=== PATIENT | male | born 1950 | race Caucasian/White ===

== ENCOUNTER 2021-01-19 20:00 | Inpatient (IN) | payer MEDICARE, OTHER ==
[~2021-01-19] VITALS: Ht 175.3 cm; Wt 93.0 kg
[2021-01-19 20:18] LABS: HEMOGLOBIN 14.9 gm/dl (14.0-17.5); RED BLOOD COUNT 5.03 M/UL (4.20-5.50); WHITE BLOOD COUNT 15.6 K/UL (4.5-11.0)
[2021-01-19 20:54] LABS: BUN/CREATININE RATIO 23 (0-10)
[2021-01-19] MEDS ORDERED: PRILOSEC OTC20 MG PO (23:04)
[2021-01-20 01:38] LABS: BUN/CREATININE RATIO 25 (0-10)
[2021-01-20 05:04] LABS: HEMOGLOBIN 14.6 gm/dl (14.0-17.5); RED BLOOD COUNT 4.93 M/UL (4.20-5.50); WHITE BLOOD COUNT 12.8 K/UL (4.5-11.0)
[2021-01-20 05:18] LABS: BUN/CREATININE RATIO 24 (0-10)
[2021-01-22 03:47] LABS: HEMOGLOBIN 13.6 gm/dl (14.0-17.5); RED BLOOD COUNT 4.65 M/UL (4.20-5.50)
[2021-01-22 03:48] LABS: WHITE BLOOD COUNT 8.6 K/UL (4.5-11.0)
[2021-01-22 04:04] LABS: BUN/CREATININE RATIO 23 (0-10)
[2021-01-22] MEDS ORDERED: PROTONIX 40 MG40 M1 PO (08:25)
[2021-01-22] MEDS ORDERED: BRILINTA 90 MG90 MG PO (08:25)
[2021-01-22] MEDS ORDERED: ATORVASTATIN CA20 MG PO (08:25)
[2021-01-22] MEDS ORDERED: ELIQUIS5 MG PO (08:25)
[2021-01-22] MEDS ORDERED: COZAAR 25MG TAB25 MG PO (08:25)
[2021-01-22] MEDS ORDERED: NITROGLYCERIN0.4 MG SL (08:25)
[2021-01-22] MEDS ORDERED: ISOSORBIDE MONO30 MG PO (08:25)
[2021-01-22] MEDS ORDERED: LOPRESSOR 25 MG25 MG PO (08:25)
== END 2021-01-22 11:43 | disposition home or self-care (01) | DRG 247 ==
LOC: ER1 20:00 → CDU 20:00 → CCU 20:00 → CDU 23:18 → CCU 23:18 → PROG CARE 01-21 10:35 → EDSTATUS 01-23 09:32
PROVIDERS: Internal Medicine Cardiovascular Disease; ADMIT Internal Medicine Cardiovascular Disease
PROC: 027034Z Dilation of Coronary Artery, One Artery with Drug-eluting Intraluminal Device, Percutaneous Approach (ICD-10-PCS; principal; 2021-01-19)
PROC: B2111ZZ Fluoroscopy of Multiple Coronary Arteries using Low Osmolar Contrast (ICD-10-PCS; 2021-01-19)
PROC: B241ZZ3 Ultrasonography of Multiple Coronary Arteries, Intravascular (ICD-10-PCS; 2021-01-19)
PROC: B24BZZZ Ultrasonography of Heart with Aorta (ICD-10-PCS; 2021-01-20)
DX: I21.09 ST elevation (STEMI) myocardial infarction involving other coronary artery of anterior wall (principal); I25.5 Ischemic cardiomyopathy; I24.0 Acute coronary thrombosis not resulting in myocardial infarction; Z20.822 Contact with and (suspected) exposure to COVID-19; E78.5 Hyperlipidemia, unspecified; Z87.11 Personal history of peptic ulcer disease
CPT/HCPCS: ECHO; 36415; 71045; 80048; 80053; 80061; 82550; 82553; 83036; 83735; 83874; 83880; 84484; 85025; 85347; 85610; 85730; 92978; 93005; 93306; 93308; 99152; 99153; 99285; C1725; C1753; C1757; C1769; C1874; C1887; C1894; J1644; J2250; J2270; J2370; J2704; J3010; J3246; J7040; Q9957; Q9965; U0002

== ENCOUNTER → 2021-02-23 | Outpatient (CLI) | payer MEDICARE ==
[~2021-02-23] MED LIST: ATORVASTATIN CA20 MG PO; BRILINTA 90 MG90 MG PO; COZAAR 25MG TAB25 MG PO; ELIQUIS5 MG PO; ISOSORBIDE MONO30 MG PO; LOPRESSOR 25 MG25 MG PO; NITROGLYCERIN0.4 MG SL; PRILOSEC OTC20 MG PO; PROTONIX 40 MG40 M1 PO
== END ==
LOC: ECHO 10:05 → HEART 5 11:30
DX: I11.0 Hypertensive heart disease with heart failure (principal); I50.9 Heart failure, unspecified
CPT/HCPCS: ECHO; 93306